=== PATIENT | male | born 1990 | race Caucasian/White ===

== ENCOUNTER 2016-09-26 08:26 | Emergency (ER) | payer SELFPAY ==
[~2016-09-26] VITALS: Ht 170.2 cm; Wt 121.7 kg
[~2016-09-26 08:26] MED LIST: ATARAX,VISTARIL25 MG PO; LOPRESSOR25 MG PO; MOTRIN600 MG PO; NOHOMEMEDS; PRILOSEC40 MG PO; XANAX0.5 MG PO
[2016-09-26 09:04] LABS: HEMATOCRIT 45.7 % (38.0-50.0); MCH 30.1 PG (29.0-34.0); MCHC 35.2 G/DL (30.0-36.0); MCV 85.6 FL (86-99); MEAN PLAT.VOLUME 9.6 uM^3 (9.0-12.4); PLATELET COUNT 241 K/uL (156-360); RBC DIS.WIDTH-CV 12.5 % (11.8-14.6); RBC DIS.WIDTH-SD 38.5 % (39-53); RED BLOOD COUNT 5.34 M/uL (4.00-5.50)
[2016-09-26 09:11] LABS: CHLORIDE 110 mEq/L (99-109); POTASSIUM 4.2 mEq/L (3.7-5.4); SODIUM 141 mEq/L (136-147)
[2016-09-26 09:13] LABS: GLUCOSE 109 mg/dL (70-99)
[2016-09-26 09:15] LABS: ANION GAP 11 MEQ/L (2-14)
[2016-09-26 09:17] LABS: GFR ESTIMATE (CALCULATED) > 59 mL/min/
[2016-09-26 09:18] LABS: UREA NITROGEN (BUN) 20 mg/dL (9-23)
[2016-09-26 09:24] LABS: TROP-I INTERPRETATION NEGATIVE; TROPONIN-I < 0.01 ng/mL (0.0-0.30)
[2016-09-26 11:45] LABS: TROP-I INTERPRETATION NEGATIVE; TROPONIN-I 0.01 ng/mL (0.0-0.30)
[2016-09-26] MEDS ORDERED: OMEPRAZOLE40 M1 PO (11:45)
[2016-09-26] MEDS ORDERED: MOTRIN800 MG PO (11:49)
[2016-09-26 12:04] VITALS: BP 142/65
== END 2016-09-26 12:07 | disposition home or self-care (01) ==
LOC: EME 08:26
PROVIDERS: Physician Assistant
DX: R07.89 Other chest pain (principal); M75.22 Bicipital tendinitis, left shoulder; Z87.891 Personal history of nicotine dependence
CPT/HCPCS: 71020; 80048; 84484; 85027; 93005; 99281; 99284

== ENCOUNTER 2016-12-06 14:21 | Emergency (ER) | payer OTHER ==
[~2016-12-06] VITALS: Ht 175.3 cm; Wt 119.9 kg
[~2016-12-06 14:21] MED LIST changes: +MOTRIN800 MG PO; +OMEPRAZOLE40 M1 PO
[2016-12-06 15:22] LABS: HEMATOCRIT 46.9 % (38.0-50.0); MCH 30.1 PG (29.0-34.0); MCV 86.1 FL (86-99); MEAN PLAT.VOLUME 9.7 uM^3 (9.0-12.4); PLATELET COUNT 244 K/uL (156-360); RBC DIS.WIDTH-SD 37.2 % (39-53); RED BLOOD COUNT 5.45 M/uL (4.00-5.50); WHITE BLOOD COUNT 6.1 K/uL (4.1-10.2)
[2016-12-06 15:32] LABS: CHLORIDE 107 mEq/L (99-109)
[2016-12-06 15:33] LABS: POTASSIUM 3.7 mEq/L (3.7-5.4); SODIUM 141 mEq/L (136-147)
[2016-12-06 15:34] LABS: GLUCOSE 140 mg/dL (70-99)
[2016-12-06 15:36] LABS: ANION GAP 12 MEQ/L (2-14)
[2016-12-06 15:38] LABS: GFR ESTIMATE (CALCULATED) > 59 mL/min/
[2016-12-06 15:39] LABS: UREA NITROGEN (BUN) 18 mg/dL (9-23)
[2016-12-06 15:42] LABS: TROP-I INTERPRETATION NEGATIVE; TROPONIN-I < 0.01 ng/mL (0.0-0.30)
[2016-12-06 17:37] VITALS: BP 152/87
== END 2016-12-06 17:38 | disposition home or self-care (01) ==
LOC: EME 14:21
PROVIDERS: Emergency Medicine
DX: R00.2 Palpitations (principal); E86.0 Dehydration; Z87.891 Personal history of nicotine dependence
CPT/HCPCS: 80048; 84484; 85027; 93005; 99281; 99285; J7030

== ENCOUNTER 2017-01-08 21:09 | Emergency (ER) | payer OTHER ==
[~2017-01-08] VITALS: Ht 175.3 cm; Wt 120.0 kg
[2017-01-08] MEDS ORDERED: ZANTAC150 MG PO (22:10)
[2017-01-08 22:37] LABS: EOSINOPHIL (%) 1.9 % (0-5); EOSINOPHIL COUNT 0.1 K/uL (0-0.3); HEMATOCRIT 45.3 % (38.0-50.0); IMMATURE GRANULOCYTE (%) 0.4 % (0.0-0.7); INSTRUMENT ABS NEUTROPHIL CT 3.9 K/uL; LYMPHOCYTE COUNT 2.7 K/uL (1.0-2.8); MCH 29.5 PG (29.0-34.0); MCHC 34.4 G/DL (30.0-36.0); MCV 85.6 FL (86-99); MEAN PLAT.VOLUME 9.6 uM^3 (9.0-12.4); MONOCYTE (%) 8.5 % (3-12); MONOCYTE COUNT 0.6 K/uL (0-0.8); NEUTROPHIL (%) 52.4 % (45-76); NEUTROPHIL COUNT 3.9 K/uL (1.8-6.4); PLATELET COUNT 275 K/uL (156-360); RBC DIS.WIDTH-CV 12.1 % (11.8-14.6); RED BLOOD COUNT 5.29 M/uL (4.00-5.50); WHITE BLOOD COUNT 7.4 K/uL (4.1-10.2)
[2017-01-08 23:07] LABS: ANION GAP 12 MEQ/L (2-14); CHLORIDE 105 MEQ/L (99-109); POTASSIUM 3.6 MEQ/L (3.7-5.4); SAMPLE HEMOLYSIS CHECK 0; SAMPLE ICTERIC CHECK 0; SAMPLE LIPEMIA CHECK 1; SODIUM 139 MEQ/L (136-147)
[2017-01-08 23:13] LABS: GFR ESTIMATE (CALCULATED) > 59 mL/min/; GLUCOSE 94 mg/dL (70-99); UREA NITROGEN (BUN) 16 mg/dL (9-23)
[2017-01-09 00:30] VITALS: BP 127/95
== END 2017-01-09 00:30 | disposition home or self-care (01) ==
LOC: EME 21:09
PROVIDERS: Physician Assistant
DX: R00.2 Palpitations (principal); R42 Dizziness and giddiness; Z87.891 Personal history of nicotine dependence
CPT/HCPCS: 71010; 80048; 84443; 85025; 93005; 99281; 99284

== ENCOUNTER 2017-02-04 00:30 | Emergency (ER) | payer OTHER ==
[~2017-02-04] VITALS: Ht 175.3 cm; Wt 121.3 kg
[~2017-02-04 00:30] MED LIST changes: +ZANTAC150 MG PO
[2017-02-04] MEDS ORDERED: MOTRIN600 MG PO (01:26)
[2017-02-04 01:44] VITALS: BP 146/88
== END 2017-02-04 01:27 | disposition home or self-care (01) ==
LOC: RME 00:30 → EME 00:30 → RME 01:27
DX: S39.012A Strain of muscle, fascia and tendon of lower back, initial encounter (principal); X50.9XXA Other and unspecified overexertion or strenuous movements or postures, initial encounter; Y93.F2 Activity, caregiving, lifting; Y99.0 Civilian activity done for income or pay
CPT/HCPCS: 99281; 99283

== ENCOUNTER 2017-02-14 18:12 | Emergency (ER) | payer OTHER ==
[~2017-02-14] VITALS: Ht 175.3 cm; Wt 121.7 kg
[2017-02-14] MEDS ORDERED: SKELAXIN800 MG PO (19:31)
[2017-02-14] MEDS ORDERED: MEDROL DOSEPAK4 MG PO (19:31)
== END 2017-02-14 20:20 | disposition home or self-care (01) ==
LOC: EME 18:12
DX: M54.12 Radiculopathy, cervical region (principal); M54.5 Low back pain; Y99.0 Civilian activity done for income or pay; X50.1XXD Overexertion from prolonged static or awkward postures, subsequent encounter; F41.9 Anxiety disorder, unspecified; Z87.891 Personal history of nicotine dependence
CPT/HCPCS: 99281; 99283

== ENCOUNTER 2017-09-19 19:57 | Emergency (ER) | payer OTHER ==
[~2017-09-19] VITALS: Ht 175.3 cm; Wt 116.1 kg
[~2017-09-19 19:57] MED LIST changes: +MEDROL DOSEPAK4 MG PO; +SKELAXIN800 MG PO
[2017-09-19 20:46] VITALS: BP 140/79
[2017-09-19 21:02] LABS: BASOPHIL (%) 0.2 % (0-1); EOSINOPHIL (%) 0.7 % (0-5); HEMATOCRIT 43.2 % (38.0-50.0); HEMOGLOBIN 14.7 G/DL (12.5-16.6); IMMATURE GRANULOCYTE (%) 0.2 % (0.0-0.7); LYMPHOCYTE (%) 37.1 % (15-42); LYMPHOCYTE COUNT 2.2 K/uL (1.0-2.8); MCH 30.5 PG (29.0-34.0); MCV 89.6 FL (86-99); MONOCYTE (%) 6.6 % (3-12); MONOCYTE COUNT 0.4 K/uL (0-0.8); NEUTROPHIL (%) 55.2 % (45-76); NEUTROPHIL COUNT 3.3 K/uL (1.8-6.4); PLATELET COUNT 222 K/uL (156-360); RBC DIS.WIDTH-CV 12.3 % (11.8-14.6); RBC DIS.WIDTH-SD 40.6 % (39-53); RED BLOOD COUNT 4.82 M/uL (4.00-5.50)
[2017-09-19 21:15] LABS: ALBUMIN 4.6 g/dL (3.2-4.8); CHLORIDE 105 mEq/L (99-109); POTASSIUM 3.9 mEq/L (3.7-5.4); SODIUM 140 mEq/L (136-147)
[2017-09-19 21:18] LABS: GLUCOSE 91 mg/dL (70-99); TOTAL PROTEIN 7.4 g/dL (6.4-8.3)
[2017-09-19 21:20] LABS: TOTAL BILIRUBIN 0.5 mg/dL (0.0-1.0)
[2017-09-19 21:21] LABS: ALKALINE PHOSPHATASE 30 IU/L (3-129); CREATININE 1.2 mg/dL (0.6-1.3); GFR ESTIMATE (CALCULATED) > 59 mL/min/ (58.99-99999)
[2017-09-19 21:23] LABS: AST (GOT) 20 IU/L (2-34); DIRECT BILIRUBIN 0.2 mg/dL (0.0-0.3); UREA NITROGEN (BUN) 18 mg/dL (9-23)
[2017-09-19 21:24] LABS: ALT (GPT) 48 IU/L (3-49)
[2017-09-21 10:47] LABS: HEPATITIS C ANTIBODY Nonreactive
[2017-09-21 10:48] LABS: HEPATITIS B SURFACE ANTIBODY Nonreactive; HIV-1/2 AB/AG COMBO Nonreactive
== END 2017-09-19 20:50 | disposition home or self-care (01) ==
LOC: EME 19:57
PROVIDERS: Physician Assistant
DX: Z77.21 Contact with and (suspected) exposure to potentially hazardous body fluids (principal); Y99.0 Civilian activity done for income or pay; F41.9 Anxiety disorder, unspecified; Z87.891 Personal history of nicotine dependence
CPT/HCPCS: 80048; 80076; 85025; 86706; 86803; 87389; 99281; 99283

== ENCOUNTER 2017-12-23 16:46 | Emergency (ER) | payer OTHER ==
[~2017-12-23] VITALS: Ht 177.8 cm; Wt 120.9 kg
[2017-12-23 17:27] LABS: HEMATOCRIT 44.8 % (38.0-50.0); HEMOGLOBIN 15.6 G/DL (12.5-16.6); MCH 30.5 PG (29.0-34.0); MCHC 34.8 G/DL (30.0-36.0); MCV 87.5 FL (86-99); PLATELET COUNT 245 K/uL (156-360); RBC DIS.WIDTH-CV 12.7 % (11.8-14.6); RBC DIS.WIDTH-SD 40.5 % (39-53); RED BLOOD COUNT 5.12 M/uL (4.00-5.50); WHITE BLOOD COUNT 9.6 K/uL (4.1-10.2)
[2017-12-23 17:36] LABS: CHLORIDE 107 mEq/L (99-109); SODIUM 141 mEq/L (136-147)
[2017-12-23 17:37] LABS: GLUCOSE 82 mg/dL (70-99)
[2017-12-23 17:41] LABS: CREATININE 0.9 mg/dL (0.6-1.3); GFR ESTIMATE (CALCULATED) > 59 mL/min/ (58.99-99999)
[2017-12-23 17:42] LABS: UREA NITROGEN (BUN) 12 mg/dL (9-23)
[2017-12-23 18:46] VITALS: BP 138/79
== END 2017-12-23 18:48 | disposition home or self-care (01) ==
LOC: EME 16:46
DX: J02.0 Streptococcal pharyngitis (principal); R04.2 Hemoptysis; F41.9 Anxiety disorder, unspecified; Z87.891 Personal history of nicotine dependence
CPT/HCPCS: 71046; 80048; 85027; 99281; 99284; J1100